=== PATIENT | male | born 1995 | race Caucasian/White ===

== ENCOUNTER 2019-07-15 17:23 | Emergency (ER) | payer SELFPAY ==
[2019-07-15] MEDS: HYDROmorphONE 2 MG/ML SYG IM (17:55)
[2019-07-15] MEDS: NEOMYC/POLYMYX/BACIT 30 GM OINT TOP (17:56)
[2019-07-15] MEDS: DIPHTH/TET/ACEL PERTUSS (ADULT) 0.5 ML VIAL IM* (17:56)
== END 2019-07-15 19:33 | disposition home or self-care (01) ==
LOC: E/R 17:23
DX: S53.401A Unspecified sprain of right elbow, initial encounter (principal); R40.2412 Glasgow coma scale score 13-15, at arrival to emergency department; S73.101A Unspecified sprain of right hip, initial encounter; S60.811A Abrasion of right wrist, initial encounter; R07.9 Chest pain, unspecified; V23.9XXA Unspecified motorcycle rider injured in collision with car, pick-up truck or van in traffic accident, initial encounter; Z23 Encounter for immunization
CPT/HCPCS: 71045; 72100; 72170; 73080-RT; 73110-RT; 90471; 90715; 96372; 99284-25